=== PATIENT | male | born 1945 | race Caucasian/White ===

== ENCOUNTER 2018-09-09 10:57 | Inpatient (IN) | payer MEDICARE, OTHER ==
[~2018-09-09] VITALS: Ht 162.7 cm; Wt 94.5 kg
[~2018-09-09 10:57] MED LIST: ASPI81TA87 PO; CeFAZolin 2 GM/DEXTROSE 50 ML IV ONE; DICL50TA7 PO; FLUO-125 PO; GABA-531 PO; HYDR25TA PO; INSLAN SQ; INSNOV SQ; LISI-662 PO; MEMA1CAP PO; MEMA1CAP3 PO; PANT40TA25 PO; RINGERS SOLUTION,LACTATED 1,000 ML IV ONE; SIMV-260 PO; TRAZ-219 PO
[2018-09-09] MEDS ORDERED: RINGERS SOLUTION,LACTATED 1,000 ML IV ONE (11:30)
[2018-09-09 11:54] LABS: EOSINOPHILS % (AUTO) 3.4 % (1.0-6.0); HEMATOCRIT 35.1 % (41-53); LYMPHOCYTES # (AUTO) 2.3 K/uL (1.0-4.8); LYMPHOCYTES % (AUTO) 28.8 % (22.0-44.0); MEAN CORPUSCULAR HEMOGLOBIN 28.2 pg (26.0-34.0); MEAN CORPUSCULAR VOLUME 83 fL (80-100); MONOCYTES # (AUTO) 0.7 K/uL (0.1-1.0); MONOCYTES % (AUTO) 9.1 % (2.0-9.0); NEUTROPHILS # (AUTO) 4.7 K/uL (1.8-7.7); NEUTROPHILS % (AUTO) 57.7 % (40.0-70.0); PLATELET COUNT (AUTO) 228 K/uL (150-450); RED BLOOD CELL COUNT(AUTO) 4.23 MIL/uL (4.50-5.90); RED CELL DISTRIBUTION WIDTH 13.5 % (11.5-14.5)
[2018-09-09] MEDS ORDERED: 0.9% SODIUM CHLORIDE 10 ML VIAL IVP ONE (12:00)
[2018-09-09] MEDS ORDERED: KETOROLAC TROMETHAMINE 60 MG/2 ML VIAL IM ONE (12:00)
[2018-09-09] MEDS ORDERED: DEXAMETHASONE SOD PHOS 4 MG/ML VIAL IVP ONE (12:00)
[2018-09-09] MEDS ORDERED: ONDANSETRON HCL 4 MG/2 ML VIAL IVP ONE (12:00)
[2018-09-09] MEDS ORDERED: MIDAZOLAM HCL 2 MG/2 ML VIAL IVP ONE (12:00)
[2018-09-09] MEDS ORDERED: PROPOFOL 1% 20 ML VIAL IVP ONE (12:00)
[2018-09-09] MEDS ORDERED: EPHEDrine SULFATE 50 MG/ML VIAL IM ONE (12:00)
[2018-09-09] MEDS ORDERED: ROCURONIUM BROMIDE 10 MG/ML 5 ML VIAL IVP ONE (12:00)
[2018-09-09] MEDS ORDERED: LIDOCAINE/PF 2% 5 ML VIAL INJ ONE (12:00)
[2018-09-09 12:03] LABS: CALCIUM, TOTAL 9.1 mg/dL (8.8-10.5); CREATININE 1.46 mg/dL (0.60-1.30); POTASSIUM 3.5 mmol/L (3.5-5.1)
[2018-09-09 12:05] LABS: INR 1.1 (0.9-1.1); PROTHROMBIN TIME 11.5 SEC (9.4-11.6)
[2018-09-09] MEDS ORDERED: LIDOCAINE 2%/EPI 1:200,000/PF 20 ML VIAL ONE (12:43)
[2018-09-09] MEDS ORDERED: BUPIVACAINE HCL/PF 0.5% 30 ML VIAL ONE (12:43)
[2018-09-09] MEDS ORDERED: BUPIVACAINE LIPOSOME/PF 1.3%-13.3MG/ML SUSPENSION 20 ML VIAL INJ ONE (12:45)
[2018-09-09] MEDS ORDERED: KETAMINE HCL 50 MG/ML 10 ML VIAL ONE (12:48)
[2018-09-09] MEDS ORDERED: FLUO-191 PO (12:48)
[2018-09-09] MEDS ORDERED: ACETAMINOPHEN 1000 MG/ISO-OSM 100 ML IV ONE (12:48)
[2018-09-09] MEDS ORDERED: CeFAZolin 2 GM/DEXTROSE 50 ML IV ONE (13:30)
[2018-09-09] MEDS ORDERED: OxyCODONE HCL/ACETAMINOPHEN 5-325 MG TABLET PO PRN (16:45)
[2018-09-09] MEDS ORDERED: MEPERIDINE-PF 25 MG/ML VIAL IVP PRN (16:45)
[2018-09-09] MEDS ORDERED: FentaNYL CITRATE-PF 100 MCG/2 ML VIAL IVP PRN (16:45)
[2018-09-09] MEDS ORDERED: HYDROmorphone 2 MG/ML SYRINGE IVP PRN ×2 (16:45)
[2018-09-09] MEDS ORDERED: ONDANSETRON HCL 4 MG/2 ML VIAL IVP PRN (17:00)
[2018-09-09] MEDS ORDERED: SUGAMMADEX SODIUM 200 MG/2 ML VIAL IVP ONE (17:07)
[2018-09-09] MEDS ORDERED: ACETAMINOPHEN 1000 MG/ISO-OSM 100 ML IV PRN (17:30)
[2018-09-09 17:54] LABS: GLUCOMETER DEV NAME(LOC) PACU.; GLUCOSE,POINT OF CARE 117 MG/DL (70-110)
[2018-09-09 18:45] VITALS: BP 162/90
[2018-09-09] MEDS: ACETAMINOPHEN 500 MG TABLET PO SCH (21:21)
[2018-09-09] MEDS: DEXTROSE 5%-0.45% SODIUM CHL 1,000 ML IV SCH (21:21)
[2018-09-09 21:58] VITALS: BP 149/84
[2018-09-09] MEDS: CeFAZolin 2 GM/DEXTROSE 50 ML IV SCH (23:12)
[2018-09-09] MEDS: KETOROLAC TROMETHAMINE 30 MG/ML VIAL IVP SCH (23:13)
[2018-09-10] VITALS (8 sets, daily range): BP systolic 117–159; BP diastolic 60–95
[2018-09-10] MEDS: ACETAMINOPHEN 500 MG TABLET PO SCH ×4 (01:30→17:48)
[2018-09-10] MEDS: CeFAZolin 2 GM/DEXTROSE 50 ML IV SCH (06:07)
[2018-09-10] MEDS: KETOROLAC TROMETHAMINE 30 MG/ML VIAL IVP SCH ×3 (06:07→17:48)
[2018-09-10] MEDS: DEXTROSE 5%-0.45% SODIUM CHL 1,000 ML IV SCH (12:34)
[2018-09-11] MEDS: KETOROLAC TROMETHAMINE 30 MG/ML VIAL IVP SCH ×4 (00:04→17:56)
[2018-09-11] MEDS: ACETAMINOPHEN 500 MG TABLET PO SCH ×4 (00:04→17:57)
[2018-09-11 04:57] VITALS: BP 154/84
[2018-09-11] MEDS: DEXTROSE 5%-0.45% SODIUM CHL 1,000 ML IV SCH (07:58)
[2018-09-11 08:02] VITALS: BP 119/70
[2018-09-11 12:47] VITALS: BP 158/75
[2018-09-11 15:57] VITALS: BP 146/89
== END 2018-09-11 17:50 | disposition home or self-care (01) | DRG 354 ==
LOC: SURGERY 10:57 → 6N 16:21
PROVIDERS: ADMIT Surgery; ATTEND Surgery
PROC: 0WUF0JZ Supplement Abdominal Wall with Synthetic Substitute, Open Approach (ICD-10-PCS; principal; 2018-09-09 13:30)
DX: K43.0 Incisional hernia with obstruction, without gangrene (principal); K56.7 Ileus, unspecified
CPT/HCPCS: 87081; 88302; 93005; C9290; G0378; J0131; J0690; J1100; J1170; J1885; J2250; J2405; J2704; J3490; J7120